=== PATIENT | male | born 1955 | race Two or more races ===

== ENCOUNTER 2020-02-09 10:12 | Outpatient (CLI) | payer OTHER | END 2020-02-09 11:30 | disposition home or self-care (01) | LOC: OFIC 805 10:12 | PROVIDERS: ATTEND Otolaryngology Otology & Neurotology | DX: H80.81 Other otosclerosis, right ear (principal); H90.A11 Conductive hearing loss, unilateral, right ear with restricted hearing on the contralateral side ==